=== PATIENT | male | born 1985 | race Two or more races ===

== ENCOUNTER 2016-09-04 22:38 | Emergency (ER) | payer OTHER ==
[~2016-09-04] VITALS: Ht 182.9 cm; Wt 114.9 kg
[2016-09-04 22:45] VITALS: BP 137/78
[2016-09-05] MEDS ORDERED: HYDROcodone-ACET 5/325MG TAB PO ONE (01:15)
== END 2016-09-05 02:14 | disposition home or self-care (01) ==
LOC: ER 22:44
DX: S01.01XA Laceration without foreign body of scalp, initial encounter (principal); S40.011A Contusion of right shoulder, initial encounter; S30.810A Abrasion of lower back and pelvis, initial encounter; F17.210 Nicotine dependence, cigarettes, uncomplicated; V86.69XA Passenger of other special all-terrain or other off-road motor vehicle injured in nontraffic accident, initial encounter; Y93.89 Activity, other specified; Y99.8 Other external cause status; Y92.89 Other specified places as the place of occurrence of the external cause
CPT/HCPCS: 12002; 70450; 73030